=== PATIENT | male | born 1965 | race Caucasian/White ===

== ENCOUNTER 2017-04-23 06:37 | Observation (INO) | payer BC, MEDICARE, OTHER ==
[2017-04-22 11:51] LABS: ASPARTATE AMINO TRANSFERASE 13 U/L (15-37); BLOOD UREA NITROGEN 21 mg/dL (7-18)
[2017-04-22 13:31] VITALS: BP 144/87
[~2017-04-23] VITALS: Ht 185.4 cm; Wt 121.0 kg
[~2017-04-23 06:37] MED LIST: AMIO200T42 PO; ATOR40TA78 PO; CARV6.2512 PO; DABI150C PO; DULA1.5P INJ; FLUT9.9S NAS; INSU100I11 SQ; INSU100V8 SQ; LOSA50TA6 PO; MAGN400T7 PO; METF10002 PO; MONT10TA9 PO
[2017-04-23] MEDS ORDERED: SODIUM CHLORIDE 0.9% 1,000 ML IV SCH (06:43)
[2017-04-23] MEDS ORDERED: INSU100I18 SC (07:04)
[2017-04-23] MEDS ORDERED: MIDAZOLAM 1 MG/ML, 5ML ONE (07:31)
[2017-04-23] MEDS ORDERED: FENTANYL PF 250 MCG/5ML ONE (07:31)
[2017-04-23] MEDS ORDERED: CEFAZOLIN 1,000 MG ONE (07:56)
[2017-04-23] MEDS ORDERED: SUCCINYLCHOLINE 20 MG/ML, 10ML ONE (07:56)
[2017-04-23] MEDS ORDERED: PROPOFOL 10 MG/ML, 20ML ONE (07:56)
[2017-04-23] MEDS ORDERED: EPHEDRINE 50 MG/ML, 1ML ONE (07:56)
[2017-04-23] MEDS ORDERED: ROCURONIUM 10 MG/ML ONE (07:56)
[2017-04-23] MEDS ORDERED: DEXAMETHASONE 4 MG/ML, 1ML ONE (07:56)
[2017-04-23] MEDS ORDERED: PHENYLEPHRINE 10 MG/ML ONE (07:56)
[2017-04-23] MEDS ORDERED: ONDANSETRON 2MG/ML, 2ML ONE (07:56)
[2017-04-23] MEDS ORDERED: ISOPROTERENOL 0.2MG/ML, 5ML ONE (08:17)
[2017-04-23] MEDS ORDERED: HEPARIN 1,000 UNITS/ML, 10ML ONE (08:17)
[2017-04-23 09:16] LABS: ABG COLLECTION SITE RIGHT RADIAL; COLLATERAL CIRCULATION TESTING NORMAL
[2017-04-23] MEDS ORDERED: PROTAMINE SULFATE 10 MG/ML, 5ML ONE (10:26)
[2017-04-23] MEDS ORDERED: TEMPLATE NON-FORMULARY MED. (Dulaglutide (Trulicity) 0.5 ML) INJ SCH (11:00)
[2017-04-23] MEDS ORDERED: ZOLPIDEM 5MG TABLET PO PRN (11:00)
[2017-04-23] MEDS ORDERED: ACETAMINOPHEN 325 MG TABLET PO PRN ×2 (11:00→12:00)
[2017-04-23] MEDS: INSULIN DETEMIR 100 UNITS/ML, PEN SQ-INSULIN SCH ×2 (11:00→21:36)
[2017-04-23] MEDS ORDERED: OMNIPAQUE 350 MG/ML, 150 ML BOTTLE ONE (11:51)
[2017-04-23] MEDS ORDERED: ONDANSETRON 2MG/ML, 2ML IVPush PRN (12:00)
[2017-04-23] MEDS ORDERED: OXYcodone 5 MG/5 ML ORAL.SOL UDC PO PRN (12:00)
[2017-04-23] MEDS ORDERED: FENTANYL PF 100 MCG/2ML IV PRN (12:00)
[2017-04-23] MEDS ORDERED: ALBUTEROL SULFATE 2.5 MG/3 ML NPPB PRN (12:00)
[2017-04-23] MEDS ORDERED: LABETALOL 5MG/ML, 20ML IV PRN (12:00)
[2017-04-23] MEDS ORDERED: hydrALAzine 20 MG/ML, 1ML IV PRN (12:00)
[2017-04-23] MEDS ORDERED: MEPERIDINE/PF 25MG/0.5ML IVPush PRN (12:00)
[2017-04-23] MEDS ORDERED: MIDAZOLAM 1 MG/ML, 2ML IV PRN (12:00)
[2017-04-23] MEDS ORDERED: PROMETHAZINE 25 MG/ML, 1ML IV PRN (12:00)
[2017-04-23] MEDS ORDERED: HYDROmorphone 1 MG/ML, 1ML IV PRN (12:00)
[2017-04-23] MEDS ORDERED: ACETAMINOPHEN 650 MG/20.3 ML UDC ONE ×2 (12:19→12:59)
[2017-04-23] MEDS ORDERED: OXYcodone 5 MG/5 ML ORAL.SOL UDC ONE ×2 (12:19→12:59)
[2017-04-23] MEDS ORDERED: ACETAMINOPHEN 325 MG TABLET ONE (12:19)
[2017-04-23 14:00] VITALS: BP 145/102
[2017-04-23 20:17] VITALS: BP 152/70
[2017-04-23] MEDS ORDERED: ATORVASTATIN 40 MG TABLET PO SCH (21:00)
[2017-04-23] MEDS: DABIGATRAN 150 MG CAPSULE PO SCH (21:36)
[2017-04-23] MEDS: CARVEDILOL 6.25 MG TABLET PO SCH (21:37)
[2017-04-23] MEDS: metFORMIN 500 MG TABLET PO SCH (21:37)
[2017-04-24 02:09] VITALS: BP 131/65
[2017-04-24 07:20] VITALS: BP 158/78
[2017-04-24] MEDS ORDERED: AMIO200T42 PO (08:03)
[2017-04-24] MEDS: DABIGATRAN 150 MG CAPSULE PO SCH (08:03)
[2017-04-24] MEDS: metFORMIN 500 MG TABLET PO SCH (08:04)
[2017-04-24] MEDS: CARVEDILOL 6.25 MG TABLET PO SCH (08:04)
[2017-04-24] MEDS ORDERED: ALUMINUM/MAG/SIMETHICONE 30 ML UDC PO PRN (08:30)
[2017-04-24] MEDS ORDERED: FLUTICASONE NASAL SPRAY 16GM NAS SCH (09:00)
[2017-04-24] MEDS ORDERED: LOSARTAN 50MG TABLET PO SCH (09:00)
[2017-04-24] MEDS ORDERED: AMIODARONE 200 MG TABLET PO SCH (09:00)
[2017-04-24] MEDS ORDERED: MONTELUKAST 10 MG TABLET PO SCH (09:00)
[2017-04-24] MEDS ORDERED: MAGNESIUM OXIDE 400 MG TABLET PO SCH (09:00)
[2017-04-24 09:03] LABS: BLOOD UREA NITROGEN 25 mg/dL (7-18)
== END 2017-04-24 13:06 | disposition home or self-care (01) ==
LOC: CACL 06:37 → ORIP 10:34 → 5SO 13:33
PROVIDERS: ADMIT Internal Medicine Cardiovascular Disease; ATTEND Internal Medicine Cardiovascular Disease
DX: I48.91 Unspecified atrial fibrillation (principal); I48.92 Unspecified atrial flutter; I10 Essential (primary) hypertension; E78.5 Hyperlipidemia, unspecified; E11.9 Type 2 diabetes mellitus without complications; G47.30 Sleep apnea, unspecified
CPT/HCPCS: 36415; 36600; 70470; 71020; 71275; 80048; 80053; 82803; 82962; 85025; 85347; 85610; 85730; 93005; 93306; 93312; 93321; 93325; 93613; 93655; 93656; 93662; 96372; C1730; C1731; C1759; C1766; C1769; C1893; C1894; G0378; J0330; J0690; J1100; J1644; J1815; J2250; J2370; J2405; J2704; J2720; J3010; Q9967; 93621

== ENCOUNTER → 2018-07-04 | Outpatient (CLI) | payer MEDICARE, OTHER ==
[~2018-07-04] MED LIST changes: +INSU100I18 SC
== END | disposition home or self-care (01) ==
LOC: CVU 09:06
PROVIDERS: ATTEND Nurse Practitioner Family
DX: I07.1 Rheumatic tricuspid insufficiency (principal); I34.0 Nonrheumatic mitral (valve) insufficiency; I35.2 Nonrheumatic aortic (valve) stenosis with insufficiency
CPT/HCPCS: 0399T; 93306

== ENCOUNTER → 2019-02-17 | Outpatient (CLI) | payer MEDICARE, OTHER ==
[~2019-02-17] MED LIST changes: +LOSA50TA14 PO; -LOSA50TA6 PO; +REGADENOSON 0.4 MG/5 ML SYRINGE ONE
== END | disposition home or self-care (01) ==
LOC: CFH 07:30
PROVIDERS: ATTEND Nurse Practitioner Family
DX: I25.9 Chronic ischemic heart disease, unspecified (principal)
CPT/HCPCS: 78452; 93017; A9502; J2785

== ENCOUNTER 2019-03-01 14:13 | Observation (INO) | payer MEDICARE, OTHER ==
[~2019-03-01] VITALS: Ht 185.4 cm; Wt 127.6 kg
[~2019-03-01 14:13] MED LIST changes: -REGADENOSON 0.4 MG/5 ML SYRINGE ONE
[2019-03-01 15:49] VITALS: BP 128/65
[2019-03-01] MEDS ORDERED: OXYB5TAB7 PO (16:37)
[2019-03-01] MEDS ORDERED: PREG150C PO (16:37)
[2019-03-01 16:47] LABS: BASOPHILS # (AUTO) 0.02 x10^3/uL (0-0.1); BASOPHILS % (AUTO) 0 % (0-1); EOSINOPHILS # (AUTO) 0.17 x10^3/uL (0-0.4); EOSINOPHILS % (AUTO) 3 % (1-7); LYMPHOCYTES # (AUTO) 1.32 x10^3/uL (1-3.4); LYMPHOCYTES % (AUTO) 24 % (22-44); MD NO; MEAN CORPUSCULAR HEMOGLOBIN 30.1 pg (27.5-34.5); MEAN CORPUSCULAR HGB CONC 32.7 g/dL (33.2-36.2); MEAN CORPUSCULAR VOLUME 92.1 fL (81-97); MEAN PLATELET VOLUME 8.3 fL (7.4-10.4); MONOCYTES # (AUTO) 0.39 x10^3/uL (0.2-0.8); MONOCYTES % (AUTO) 7 % (2-9); NEUTROPHILS # (AUTO) 3.73 x10^3/uL (1.8-6.8); NEUTROPHILS % (AUTO) 66 % (42-75); PLATELET COUNT 174 x10^3/uL (130-400); RED BLOOD COUNT 5.61 x10^6/uL (4.38-5.82); RED CELL DISTRIBUTION WIDTH 17.6 % (9.4-14.8)
[2019-03-01 16:57] LABS: ALANINE AMINOTRANSFERASE 41 U/L (12-78); ALBUMIN 4.2 g/dL (3.4-5.0); ANION GAP 8 mmol/L (5-15); CALCIUM 9.4 mg/dL (8.5-10.1); CHLORIDE 107 mmol/L (98-107); CREATININE 1.52 mg/dL (0.7-1.3)
[2019-03-01 17:01] LABS: ALKALINE PHOSPHATASE 57 U/L (45-117); TOTAL PROTEIN 7.7 g/dL (6.4-8.2); TROPONIN I 0.072 ng/mL (0.000-0.045)
[2019-03-01] MEDS ORDERED: ACETAMINOPHEN 325 MG TABLET PO PRN (17:30)
[2019-03-01] MEDS ORDERED: SLIDING SCALE MC SCH (17:30)
[2019-03-01] MEDS ORDERED: ZOLPIDEM 5MG TABLET PO PRN (17:30)
[2019-03-01 18:21] VITALS: BP 137/72
[2019-03-01] MEDS: CARVEDILOL 12.5 MG TABLET PO SCH (18:22)
[2019-03-01] MEDS: metFORMIN 500 MG TABLET PO SCH (18:22)
[2019-03-01 18:32] VITALS: BP 127/69
[2019-03-01] MEDS ORDERED: MONTELUKAST 10 MG TABLET PO SCH (21:00)
[2019-03-01] MEDS ORDERED: PREGABALIN 150 MG CAPSULE PO SCH (21:00)
[2019-03-01] MEDS: INSULIN LISPRO 100 UNITS/ML, PEN SQ-INSULIN SCH (21:00)
[2019-03-01] MEDS ORDERED: ATORVASTATIN 40 MG TABLET PO SCH (21:00)
[2019-03-01] MEDS: OXYBUTYNIN CHLORIDE 5 MG TABLET PO SCH (21:25)
[2019-03-01 22:42] LABS: TROPONIN I 0.077 ng/mL (0.000-0.045)
[2019-03-02 01:30] VITALS: BP 101/56
[2019-03-02 06:24] VITALS: BP 110/66
[2019-03-02] MEDS: CARVEDILOL 12.5 MG TABLET PO SCH (06:25)
[2019-03-02] MEDS: INSULIN LISPRO 100 UNITS/ML, PEN SQ-INSULIN SCH ×3 (07:00→16:00)
[2019-03-02] MEDS: metFORMIN 500 MG TABLET PO SCH ×2 (08:00→17:00)
[2019-03-02] MEDS: OXYBUTYNIN CHLORIDE 5 MG TABLET PO SCH (08:43)
[2019-03-02] MEDS ORDERED: HYDROCHLOROTHIAZIDE 25 MG TABLET PO SCH (09:00)
[2019-03-02] MEDS ORDERED: LOSARTAN 50MG TABLET PO SCH (09:00)
[2019-03-02] MEDS ORDERED: PREGABALIN 150 MG CAPSULE PO SCH (09:00)
[2019-03-02] MEDS ORDERED: JARDIANCE 10 MG HOMEMEDPO SCH (09:00)
[2019-03-02] MEDS ORDERED: SODIUM CHLORIDE 0.9% 1,000 ML IV SCH (11:00)
[2019-03-02 14:03] VITALS: BP 114/68
[2019-03-02] MEDS ORDERED: BIVALIRUDIN 250 MG ONE (14:56)
[2019-03-02] MEDS ORDERED: VERAPAMIL 2.5 MG/ML, 2ML ONE (14:56)
[2019-03-02] MEDS ORDERED: TICAGRELOR 90 MG TABLET ONE (14:56)
[2019-03-02] MEDS ORDERED: HEPARIN 1,000 UNITS/ML, 10ML ONE (14:56)
[2019-03-02] MEDS ORDERED: FENTANYL PF 100 MCG/2ML ONE ×2 (14:56→15:40)
[2019-03-02] MEDS ORDERED: MIDAZOLAM 1 MG/ML, 5ML ONE ×2 (14:56→15:40)
[2019-03-02] MEDS ORDERED: DIPHENHYDRAMINE 50 MG/ML, 1ML ONE (14:57)
[2019-03-02] MEDS ORDERED: LIDOCAINE 2%, 20ML ONE (14:57)
[2019-03-02] MEDS ORDERED: INSULIN GLARGINE 100 UNITS/ML, PEN SQ-INSULIN SCH (16:30)
== END 2019-03-02 18:30 | disposition home or self-care (01) ==
LOC: 5SO 15:03 → INTOOBSV 15:03 → 5SO 15:15
PROVIDERS: ADMIT Internal Medicine Cardiovascular Disease; ATTEND Internal Medicine Cardiovascular Disease
DX: I25.110 Atherosclerotic heart disease of native coronary artery with unstable angina pectoris (principal); I48.91 Unspecified atrial fibrillation; E78.5 Hyperlipidemia, unspecified; G47.33 Obstructive sleep apnea (adult) (pediatric); I10 Essential (primary) hypertension; E11.9 Type 2 diabetes mellitus without complications
CPT/HCPCS: 36415; 80053; 82962; 84484; 85025; 93458; 99156; 99157; C1769; C1887; C1894; G0378; J1200; J1644; J2250; J3010; J3490; J7030; Q9967; J0583